=== PATIENT | male | born 1955 | race Hispanic/Latino ===

== ENCOUNTER → 2018-04-17 | Day surgery (SDC) | payer OTHER ==
[~2018-04-17] MED LIST: DEXAMETHASONE SOD PHOS INJ 4 MG/ML VIAL ONE; FENTANYL CITRATE/PF 100MCG/2 ML INJ ONE; FINASTERIDE5 MG PO; FLOMAX0.4 MG PO; GABAPENTIN300 MG PO; GENTAMICIN 120MG/NS 100ML 100 ML ONE; IOPAMIDOL 610MG/1ML 300 MG/ML VIAL IV ONE; LIDOCAINE HCL 2% LOCAL INJ 5 ML SDV VIAL INJ ONE; MIDAZOLAM HCL 2 MG/2 ML VIAL ONE; OMEPRAZOLE40 MG PO; PROPOFOL IV EMULSION 10 MG/ML 20 ML VIAL ONE; SEVOFLURANE INHAL SOLN 250 ML PEN BTL ONE
[2018-04-17 11:30] VITALS: BP 134/84
--- NOTE | 2018-04-17 13:27 | Operative Report ---
DATE OF PROCEDURE: April 17, 2018 PREOPERATIVE DIAGNOSIS: Bladder stone, 3.8 x 3.8 cm. POSTOPERATIVE DIAGNOSIS: Bladder stone, 3.8 x 3.8 cm. PROCEDURES: Cystolitholapaxy, complicated large. ANESTHESIA: General. ESTIMATED BLOOD LOSS: Minimal. COMPLICATIONS: None. INDICATIONS FOR PROCEDURE: Mr. Clayton is a 62-year-old male who found on cystoscopy to have approximately 3.8 cm bladder calculi. He and I had a long discussion in regard to the alternatives, risks and benefits including doing nothing, cystolitholapaxy versus opening. He voiced an understanding of the options, the alternatives, and the risks and benefits, and he elected to proceed. PROCEDURE IN DETAIL: After informed consent was obtained, the patient was taken to the operative suite and placed supine on the operating table. He underwent general anesthesia by the anesthesia service. He was then placed in the dorsal lithotomy position and sterilely prepped and draped for cystoscopy. A 22.5-Filipino cystoscope was inserted per urethra. There was trilobar prostatic hypertrophy. Panendoscopy of the bladder revealed a mild degree of trabeculation, small capacity bladder. Bladder stone was filling almost the entire bladder. Utilizing a 1000 micron laser fiber, the stone was obliterated into fragments small enough to be evacuated. After all fragments were evacuated, the bladder was drained. The patient was awakened from anesthesia and transported to the recovery room in excellent condition with no untoward effects noted. Job#: [id number] [id number] cc:DR. JYOTI MANLEY
== END | disposition home or self-care (01) ==
LOC: OR 07:01
PROVIDERS: ATTEND Urology
DX: N21.0 Calculus in bladder (principal); N40.1 Benign prostatic hyperplasia with lower urinary tract symptoms; R35.1 Nocturia; R31.29 Other microscopic hematuria; I10 Essential (primary) hypertension; Z01.810 Encounter for preprocedural cardiovascular examination
CPT/HCPCS: 52318; 88300; 93005; J1100; J1580; J2001; J2250; J2704; Q9967